=== PATIENT | male | born 1945 | race Two or more races ===

== ENCOUNTER 2023-01-09 12:30 | Emergency (ER) | payer OTHER ==
[~2023-01-09] VITALS: Ht 154.9 cm; Wt 51.3 kg
[2023-01-09] MEDS ORDERED: ATORVASTATIN CA40 MG PO (13:19)
[2023-01-09] MEDS ORDERED: OMEPRAZOLE40 MG PO (13:19)
[2023-01-09 16:46] LABS: HEMATOCRIT 39.7 % (39.0-48.0); HEMOGLOBIN 13.6 g/dL (13-16.00); MEAN CELL VOLUME 91.3 fL (80.0-100.00); MEAN CORPUSCULAR HEMOGLOBIN 31.3 pg (27.00-32.0); MEAN CORPUSCULAR HGB CONC 34.2 g/dl (32.0-36.0); PLATELET COUNT 222 K/uL (150-450); RED BLOOD COUNT 4.34 M/uL (4.00-6.00); RED CELL DISTRIBUTION WIDTH 13.2 % (11.5-14.5)
[2023-01-09 17:14] LABS: BILIRUBIN TOTAL 0.52 mg/dL (0.3-1.2); CALCIUM 9.2 mg/dL (8.5-10.1); CREATININE SERUM 0.71 mg/dL (0.70-1.30); GFR 107.58; GLOBULINA 3.4 G/DL (2.4-3.5); POTASSIUM 4.16 mEq/L (3.5-5.1); TOTAL PROTEIN 7.4 gm/dL (6.4-8.2)
== END 2023-01-09 21:15 | disposition home or self-care (01) ==
LOC: ER 12:30
PROVIDERS: General Practice
DX: K29.70 Gastritis, unspecified, without bleeding (principal); E11.9 Type 2 diabetes mellitus without complications; Z79.84 Long term (current) use of oral hypoglycemic drugs; I10 Essential (primary) hypertension
CPT/HCPCS: 36415; 76700; 96365; 99284; J3490